=== PATIENT | male | born 1970 | race Caucasian/White ===

== ENCOUNTER 2018-01-08 19:16 | Emergency (ER) | payer BC, OTHER ==
--- NOTE | 2018-01-08 20:01 | EDM.PDOC ---
ED HPI GENERAL MEDICAL PROBLEM - General Chief Complaint: Skin Complaint Stated Complaint: PT HAS INFECTION IN RT FOOT Time Seen by Provider: 01/08/18 19:59 Source of Information: Reports: Patient - History of Present Illness INITIAL COMMENTS - FREE TEXT/NARRATIVE: HISTORY AND PHYSICAL: History of present illness: [Patient was on vacation at [place], all waiting through the watery rest on the third toe right foot by a stingray he now has cellulitis covering the dorsum of his foot, he states several days ago there was pus coming from the lesion and he extracted a small remnant of the stingray, currently no exudates for culture however cellulitis of toe and dorsum of foot remains. Small central nidus on the dorsum of the third toe redness warmth tender no exudates no fluctuance No fever nausea vomiting chills sweats ] Review of systems: As per history of present illness and below otherwise all systems reviewed and negative. Past medical history: As per history of present illness and as reviewed below otherwise noncontributory. Surgical history: As per history of present illness and as reviewed below otherwise noncontributory. Social history: No reported history of drug or alcohol abuse. Family history: As per history of present illness and as reviewed below otherwise noncontributory. Physical exam: HEENT: Atraumatic, normocephalic, pupils reactive, negative for conjunctival pallor or scleral icterus, mucous membranes moist, throat clear, neck supple, nontender, trachea midline. Lungs: Clear to auscultation, breath sounds equal bilaterally, chest nontender. Heart: S1S2, regular, negative for clicks, rubs, or JVD. Abdomen: Soft, nondistended, nontender. Negative for masses or hepatosplenomegaly. Negative for costovertebral tenderness. Pelvis: Stable nontender. Genitourinary: Deferred. Rectal: Deferred. Extremities: Atraumatic, negative for cords or calf pain. Neurovascular unremarkable. Neuro: Awake, alert, oriented. Cranial nerves II through XII unremarkable. Cerebellum unremarkable. Motor and sensory unremarkable throughout. Exam nonfocal. Skin as per history of present illness otherwise unremarkable Diagnostics: [Right foot 2 views rule out foreign body ] Poison control contacted for recommendations and recommended Bactrim and x-ray however no further recommendations outside of wound management Therapeutics: [Bactrim double strength by mouth twice a day #20 no refill ] Impression: [Cellulitis right foot] Definitive disposition and diagnosis as appropriate pending reevaluation and review of above. right foot Pain Score (Numeric/FACES): 2 - Related Data Allergies Allergy/AdvReac Type Severity Reaction Status Date / Time Penicillins Allergy Hives Verified 01/08/18 19:21 Home Meds: Home Meds . [No Known Home Meds] 01/08/18 [History] Social & Family History - Family History Family Medical History: Noncontributory - Tobacco Use Smoking Status *Q: Never Smoker - Alcohol Use Days Per Week of Alcohol Use: 0 Number of Drinks Per Day: 0 Total Drinks Per Week: 0 - Recreational Drug Use Recreational Drug Use: No Drug Use in Last 12 Months: No ED ROS GENERAL - Review of Systems Review Of Systems: ROS reveals no pertinent complaints other than HPI. ED EXAM, SKIN/RASH Exam: See Below Course - Vital Signs Last Recorded V/S: Last Vital Signs Temp 97.8 F 01/08/18 19:16 Pulse 70 01/08/18 19:16 Resp 18 01/08/18 19:16 BP 131/80 01/08/18 19:16 Pulse Ox 96 01/08/18 19:16 - Orders/Labs/Meds Orders: Active Orders 24 hr Category Date Time Status Foot 2V Rt [CR] Stat Exams 01/08/18 19:55 Taken Departure - Departure Time of Disposition: 21:12 Disposition: Home, Self-Care 01 Condition: Good Clinical Impression: Cellulitis - Discharge Information Referrals: PCP,None [Primary Care Provider] - Forms: ED Department Discharge Additional Instructions: Medication as prescribed Return if symptoms persist or worsen Follow-up with primary care in 2 weeks sooner as needed [facility] [address] [place] [address] The following information is given to patients seen in the emergency department who are being discharged to home. This information is to outline your options for follow-up care. We provide all patients seen in our emergency department with a follow-up referral. The need for follow-up, as well as the timing and circumstances, are variable depending upon the specifics of your emergency department visit. If you don't have a primary care physician on staff, we will provide you with a referral. We always advise you to contact your personal physician following an emergency department visit to inform them of the circumstance of the visit and for follow-up with them and/or the need for any referrals to a consulting specialist. The emergency department will also refer you to a specialist when appropriate. This referral assures that you have the opportunity for follow-up care with a specialist. All of these measure are taken in an effort to provide you with optimal care, which includes your follow-up. Under all circumstances we always encourage you to contact your private physician who remains a resource for coordinating your care. When calling for follow-up care, please make the office aware that this follow-up is from your recent emergency room visit. If for any reason you are refused follow-up, please contact the [facility] emergency department at and asked to speak to the emergency department charge nurse. - My Orders Last 24 Hours: My Active Orders 01/08/18 19:55 Foot 2V Rt [CR] Stat - Assessment/Plan Last 24 Hours: My Active Orders 01/08/18 19:55 Foot 2V Rt [CR] Stat
[2018-01-09 03:45] VITALS: BP 120/91
--- NOTE | 2018-01-09 11:09 | CR ---
EXAM DATE: 01/08/18 PATIENT'S AGE: 47 Patient: SOPHIE TYLER Facility: [place], [place] Site . Site : 1970 Study: XRay Extremity Right foot [id number]/21/2018 9:12:58 PM Ordering Physician: Mary Perry Final Report: INDICATION: Rule out foreign body. Stung by stingray 1 week ago with cellulitis. TECHNIQUE: Right foot, two views COMPARISON: None FINDINGS: Bones: Alignment is normal. No acute fractures or aggressive osseous lesions seen. Joint spaces: The visualized hindfoot, midfoot, and forefoot joints are unremarkable in appearance. Soft tissues: On lateral view, mild degree of dorsal forefoot soft tissue swelling. No radiopaque foreign body identified. IMPRESSION: 1. No acute osseous injury or radiopaque soft tissue foreign body. Dictated by Neel Roberts MD @ 01/08/2018 9:21:40 PM Dictated by: Neel Roberts MD @ 01/08/2018 21:21:49 (Electronic Signature) Report Signed by Proxy. [facility]
== END 2018-01-08 21:20 | disposition home or self-care (01) ==
LOC: MW.ED 19:16
DX: L03.115 Cellulitis of right lower limb (principal); Z88.0 Allergy status to penicillin
CPT/HCPCS: 73620-26-RT; 73620-RT; 99282; 99283